=== PATIENT | male | born 1990 | race Caucasian/White ===

== ENCOUNTER 2016-12-01 11:51 | Emergency (ER) | payer SELFPAY ==
[2016-12-01] MEDS ORDERED: Bupivacaine 0.5% 10 ML VIAL ONE (12:14)
--- NOTE | 2016-12-01 18:10 | RAD ---
RIGHT HAND THREE VIEWS 12/01/16 A comminuted fracture of the proximal second metacarpal is present with some displacement of the fra gments. The other bones of the hand and wrist appear intact. The carpal relations were normal. The d igits appear intact. IMPRESSION: Comminuted fracture of the proximal second metacarpal shaft. POS: HOME
--- NOTE | 2016-12-01 18:12 | RAD ---
RIGHT HAND POST REDUCTION 12/01/16 Comparison is made with the earlier study. A splint has been applied. There is no adverse change in the alignment of the second metacarpal fracture, and the alignment has probably been improved slight ly. IMPRESSION: Post reduction of second metacarpal fracture. POS: HOME
== END 2016-12-01 13:08 | disposition home or self-care (01) ==
LOC: BURERS 11:51
DX: S62.320A Displaced fracture of shaft of second metacarpal bone, right hand, initial encounter for closed fracture (principal); F17.210 Nicotine dependence, cigarettes, uncomplicated; W22.8XXA Striking against or struck by other objects, initial encounter
CPT/HCPCS: 26605; J3490

== ENCOUNTER 2024-07-08 13:16 | Emergency (ER) | payer SELFPAY ==
[2024-07-08] MEDS ORDERED: Ketorolac Tromethamine 60 MG/2 ML VIAL ONE (13:29)
== END 2024-07-08 14:08 | disposition home or self-care (01) ==
LOC: BURERS 13:16
DX: R07.89 Other chest pain (principal); F17.210 Nicotine dependence, cigarettes, uncomplicated
CPT/HCPCS: 96372; 99284; J1885